=== PATIENT | male | born 1960 | race Caucasian/White ===

== ENCOUNTER → 2017-04-05 | Outpatient (CLI) | payer BC | END | disposition home or self-care (01) | LOC: KCIC MRI 07:42 | DX: M77.01 Medial epicondylitis, right elbow (principal); M94.221 Chondromalacia, right elbow; J34.2 Deviated nasal septum; M25.821 Other specified joint disorders, right elbow | CPT/HCPCS: 70030; 73221 ==

== ENCOUNTER → 2017-04-14 | Outpatient (CLI) | payer BC ==
[2017-04-14 15:29] LABS: ADD MAN DIFF? NO
[2017-04-14 15:48] LABS: BARBITURATES NEG (NEG); BENZODIAZEPINES NEG (NEG); CANNABINOIDS POS (NEG); COCAINE NEG (NEG); METHADONE NEG (NEG); OPIATES NEG (NEG); PHENCYCLIDINE NEG (NEG)
[2017-04-14 15:49] LABS: AMPHETAMINE/METHAMPHETAMINE NEG (NEG); BASO # 0.1 x10^3/uL (0.0-0.2); BASO % 1 % (0-3); EOS # 0.2 x10^3/uL (0.0-0.7); EOS % 2 % (0-3); ETHANOL, URINE NEG (NEG); HEMATOCRIT 46.2 % (39.0-53.0); HEMOGLOBIN 15.8 g/dL (13.0-17.5); LYMPH # 2.3 x10^3/uL (1.0-4.8); LYMPH % 23 % (24-48); MEAN CORPUSCULAR HEMOGLOBIN 30 pg (25-35); MEAN CORPUSCULAR HGB CONC 34 g/dL (31-37); MEAN CORPUSCULAR VOLUME 89 fL (79-100); MONO # 0.6 x10^3/uL (0.0-1.1); MONO % 6 % (0-9); NEUT # 6.9 x10^3uL (1.8-7.7); NEUT % 69 % (31-73); PLATELET COUNT 282 x10^3/uL (140-400); RED BLOOD COUNT 5.22 x10^6/uL (4.30-5.70); RED CELL DISTRIBUTION WIDTH 12.7 % (11.5-14.5)
[2017-04-14 15:50] LABS: IONIZED CALCIUM 1.26 mmol/L (1.13-1.32)
[2017-04-14 15:58] LABS: ALBUMIN/GLOBULIN RATIO 1.1 (1.0-1.7); ALK PHOS 68 U/L (46-116); ALT (SGPT) 23 U/L (16-63); ANION GAP 8 (6-14); AST (SGOT) 14 U/L (15-37); BLOOD UREA NITROGEN 30 mg/dL (8-26); BUN/CREATININE RATIO 30 (6-20); CALCIUM 9.3 mg/dL (8.5-10.1); CARBON DIOXIDE 31 mmol/L (21-32); CHLORIDE 102 mmol/L (98-107); CREATINE KINASE 85 U/L (39-308); GFR 77.3; GLUCOSE 96 mg/dL (70-99); POTASSIUM 4.4 mmol/L (3.5-5.1); SODIUM 141 mmol/L (136-145); TOTAL BILIRUBIN 0.2 mg/dL (0.2-1.0); TOTAL PROTEIN 7.7 g/dL (6.4-8.2)
[2017-04-14 16:09] LABS: FREE T4 0.84 ng/dL (0.76-1.46)
[2017-04-14 16:09] LABS: THYROID STIM HORMONE (TSH) 2.701 uIU/mL (0.358-3.74)
[2017-04-14 20:53] LABS: VITAMIN-B12 572 pg/mL (247-911)
[2017-04-15 00:12] LABS: HIV ANTIBODY Non Reactive (Non Reactive)
== END | disposition home or self-care (01) ==
LOC: LAB 15:04
DX: R25.3 Fasciculation (principal)
CPT/HCPCS: 36415; 80053; 80307; 82306; 82310; 82550; 82607; 84439; 84443; 85025; 86141; 86703

== ENCOUNTER → 2017-04-16 | Outpatient (CLI) | payer BC | END | disposition home or self-care (01) | LOC: KCIC MRI 08:28 | DX: R25.3 Fasciculation (principal); H57.10 Ocular pain, unspecified eye | CPT/HCPCS: 70030 ==

== ENCOUNTER → 2017-04-19 | Outpatient (CLI) | payer BC ==
[2017-04-19] MEDS: GADOBUTROL 7.5 MMOL/7.5 ML VIAL IV ×2 (09:18)
== END | disposition home or self-care (01) ==
LOC: KCIC MRI 08:02
DX: M48.02 Spinal stenosis, cervical region (principal); M47.892 Other spondylosis, cervical region; M25.78 Osteophyte, vertebrae; G95.89 Other specified diseases of spinal cord; D18.09 Hemangioma of other sites
CPT/HCPCS: 72156; A9585

== ENCOUNTER → 2017-05-27 | Outpatient (CLI) | payer BC ==
[2017-05-27] MEDS: GADOBUTROL 7.5 MMOL/7.5 ML VIAL IV (16:30)
== END | disposition home or self-care (01) ==
LOC: KCIC MRI 15:02
DX: G54.5 Neuralgic amyotrophy (principal); R25.3 Fasciculation
CPT/HCPCS: 73220; A9585

== ENCOUNTER → 2018-10-24 | Outpatient (CLI) | payer BC, OTHER ==
--- NOTE | 2018-10-24 15:10 | KCIC ---
MR of the right elbow HISTORY: Right elbow pain after surgery. TECHNIQUE: Routine multiplanar sequences are obtained. COMPARISON: April 05, 2017 FINDINGS: There is [id number] motion degradation. Biceps and brachialis tendons are intact. Triceps tendon is intact. Common flexor tendon demonstrates mild signal compatible with mild tendinosis, appears similar to improved since prior study. Ulnar collateral ligament is intact. Signal within and about the proximal ulnar collateral ligament as well as thickening are less evident today as compared with previous. Common extensor tendon again demonstrates some thickening and tendinosis signal with a fluid-filled signal defect. This appears better defined than on the prior study. No evidence of gross progression or through and through rupture. Proximal lateral collateral ligament complex appears slightly thickened, similar. No acute fracture. No aggressive bone destruction. Subchondral marrow cystic-type change at the anterior capitellum is unchanged. Ulnar nerve appears unremarkable. IMPRESSION: 1. Common flexor tendinosis appears similar to slightly improved. Ulnar collateral ligament thickening and signal are less apparent today. 2. Common extensor tendon tearing is better defined on today's study, no evidence of gross progression. Electronically signed by: Orestes Freeman MD (10/24/2018 3:06 PM) [id number]
== END | disposition home or self-care (01) ==
LOC: KCIC MRI 10:55
PROVIDERS: ATTEND Anesthesiology
DX: S56.511A Strain of other extensor muscle, fascia and tendon at forearm level, right arm, initial encounter (principal); X58.XXXA Exposure to other specified factors, initial encounter; Y93.89 Activity, other specified; Y92.89 Other specified places as the place of occurrence of the external cause; Y99.8 Other external cause status
CPT/HCPCS: 73721